=== PATIENT | female | born 1985 | race Caucasian/White ===

== ENCOUNTER 2020-02-23 15:38 | Emergency (ER) | payer OTHER ==
[~2020-02-23] VITALS: Ht 157.5 cm; Wt 82.1 kg
[~2020-02-23 15:38] MED LIST: DOCU240C31 PO; IBUP-1222 PO; LABE200T6 PO; OMEP10CA5 PO; OXYC-302 PO; PREN1TAB52 PO
[2020-02-23 15:47] VITALS: BP 166/97
--- NOTE | 2020-02-23 17:57 | NUR ---
neg us for lower leg dvt
== END 2020-02-23 17:57 | disposition home or self-care (01) ==
LOC: ED 17:28
DX: M79.661 Pain in right lower leg (principal)
CPT/HCPCS: 99284